=== PATIENT | female | born 1975 | race Caucasian/White ===

== ENCOUNTER 2023-02-24 12:43 | Emergency (ER) | payer OTHER, SELFPAY ==
[2023-02-24 12:53] VITALS: BP 141/77; PULSE 84; RESP 18; TEMP 36.6; O2SAT 98
--- NOTE | 2023-02-24 13:04 | ED.URI ---
HPI - URI/Sore Throat General Chief Complaint: Upper Respiratory Infection Stated Complaint: strep throat test Time Seen by Provider: 02/24/23 13:04 History of Present Illness HPI Narrative: 47-year-old female presented for complaint of sinus congestion and sore throat since yesterday. Patient's dtr who resides with her every other week tested positive for strep today, she was last exposed to dtr 5 days ago. Denies shortness of breath, wheezing, nausea, vomiting, fevers or chills. She has taken ibuprofen for symptoms. Related Data Home Medications Medication Instructions Recorded Confirmed dulaglutide 3 mg/0.5 mL 3 mg subcut WEEKLY 02/24/23 02/24/23 subcutaneous pen injector (Trulicity) Allergies Allergy/AdvReac Type Severity Reaction Status Date / Time cephalexin Allergy Mild rash Verified 02/24/23 13:04 Review of Systems Review of Systems: CONSTITUTIONAL: Denies body aches, fever, chills, or sweats. EYES: Denies visual changes, redness, or discharge. ENT: Reports sore throat, rhinorrhea CARDIOVASCULAR: Denies chest pain, palpitations, or edema. RESPIRATORY: Denies dyspnea. GASTROINTESTINAL: Denies abdominal pain, nausea, vomiting, or diarrhea. SKIN: Denies rash, itching, or wounds. MUSCULOSKELETAL: Denies back pain, joint pain, or myalgia. NEUROLOGIC: Denies headache PMF Past Medical History Medical History (Updated 02/24/23 @ 13:19 by Fabienne Quintero APRN) No pertinent past medical history Social History Social History Smoking status: Never smoker Alcohol intake: never Exam Narrative: GENERAL: well-appearing, no acute distress. EYES: conjunctivae clear ENT: Mucous membranes moist. TMs pearly goel with normal light reflex bilaterally; no tragal tenderness. Oropharynx erythematous without lesions. Tonsils not enlarged and without exudate. No drooling, no hoarseness, no trismus, uvula midline. No tripod positioning, hot potato voice, or soft palate swelling. NECK: Supple. No lymphadenopathy CHEST: Clear to auscultation, breath sounds equal. No respiratory distress, speaks in full sentences. HEART: Regular rate and rhythm. No murmur heard. SKIN: Warm, dry, no rash. NEURO: Alert and oriented x3. Course Course Emergency Course: Patient is aware of diagnosis, understands and agrees to treatment plan. Anticipatory guidance given. Patient agrees to follow-up as directed and is aware of reasons to seek care at the emergency department. Portions of this record may have been created with voice recognition software Level of Care: Express Care Visit Vital Signs Vital signs: Vital Signs Temperature 97.8 F 02/24/23 12:53 Pulse Rate 84 02/24/23 12:53 Respiratory Rate 18 02/24/23 12:53 Blood Pressure 141/77 H 02/24/23 12:53 Pulse Oximetry 98 02/24/23 12:53 Oxygen Delivery Room Air 02/24/23 12:53 Temperature 97.8 F 02/24/23 13:06 Pulse Rate 84 02/24/23 13:06 Respiratory Rate 18 02/24/23 13:06 Blood Pressure 141/77 H 02/24/23 13:06 Pulse Oximetry 98 02/24/23 13:06 Oxygen Delivery Room Air 02/24/23 13:06 MDM - URI/Sore Throat MDM Narrative Medical decision making narrative: strep result reviewed with pt. Advise supportive treatments. Patient is appropriate for outpatient treatment and follow-up. Differential Diagnosis Differential diagnosis: Likely upper respiratory infection, viral infection and pharyngitis Lab Data Labs: Strep Screen Presumptive Negative *(Reference Range: Negative)* Discharge Plan Discharge Clinical Impression: Pharyngitis Qualifiers: Pharyngitis/tonsillitis etiology: unspecified etiology Qualified Code(s): J02.9 - Acute pharyngitis, unspecified Patient Disposition: Home, Self-Care Condition: Stable Instructions: Antibiotic Form, Pharyngitis (ED) Additional Instructions: Rapi
[2023-02-24 13:06] VITALS: BP 141/77; PULSE 84; RESP 18; TEMP 36.6; O2SAT 98
== END 2023-02-24 13:21 | disposition home or self-care (01) ==
PROVIDERS: Emergency Provider Nurse Practitioner Family; PCP Nurse Practitioner Family
DX: J02.9 Acute pharyngitis, unspecified (principal)
CPT/HCPCS: 87081; 87880; 99213; G0463

== ENCOUNTER 2023-12-27 09:07 | Emergency (ER) | payer BC, SELFPAY ==
[2023-12-27 09:13] VITALS: BP 153/76; PULSE 83; RESP 16; TEMP 36.3; O2SAT 99
--- NOTE | 2023-12-27 09:17 | ED.URI ---
HPI - URI/Sore Throat General Chief Complaint: Upper Respiratory Infection Stated Complaint: Sore Throat/Ear Pain Time Seen by Provider: 12/27/23 09:35 Source: patient, RN notes reviewed and old records reviewed Mode of arrival: ambulatory Limitations: no limitations History of Present Illness HPI Narrative: 48 year old female who presents to [facility] with complaints of sore throat, ear pain, cough, body aches, ear pain,and congestion since Monday. Patient reports that it is painful to swallow rates her pain 6-7 but has not taken any OTC medication reports that she hates to take medication. Patient reports that daughter had positive strep last week and she feel like she has strep. Patient requesting Z-pack because easy to swallow. MD elicited complaint: cough, sore throat, nasal congestion and other (body aches and ear pain) Pertinent past history: other (diabetic) Onset (ago): day(s) (day 4) Pain scale (0-10): 7 Able to tolerate fluids by mouth: Yes Exacerbating factors: swallowing Treatments prior to arrival: none Related Data Allergies Allergy/AdvReac Type Severity Reaction Status Date / Time cephalexin Allergy Mild rash Verified 12/27/23 09:35 Review of Systems Review of Systems: CONSTITUTIONAL: Reports malaise, no chills, sweats, or fever. EYES: Denies visual changes, redness, or discharge. ENT: Reports rhinorrhea, congestion, sinus pain,positive for otalgia and positive for sore throat. CARDIOVASCULAR: Denies chest pain, palpitations, or edema. RESPIRATORY: Reports cough.? Denies dyspnea. GASTROINTESTINAL: Denies abdominal pain, nausea, vomiting, diarrhea SKIN: Denies rash or itching. MUSCULOSKELETAL:Reports myalgia. NEUROLOGIC: Denies headache. All systems reviewed & are unremarkable except as noted in HPI and below PMFSH Past Medical History Medical History (Updated 12/29/23 @ 00:14 by Coby Quick NP) Bilateral ankle fractures Diabetes H/O hidradenitis suppurativa No pertinent past medical history TIA (transient ischemic attack) Surgical History Surgical History (Updated 12/29/23 @ 00:14 by Coby Quick NP) Hx of cholecystectomy Family History Family History (Updated 12/29/23 @ 00:18 by Coby Quick NP) Mother Diabetes mellitus Father Acute myocardial infarction Social History Social History (Updated 12/29/23 @ 00:14 by Coby Quick NP) Smoking status: Current every day smoker Tobacco type: e-cigarettes/vaping Alcohol intake: never Substance use type: does not use Living arrangements: with family Gender identity (if verbalized by the patient): Female Comments At time of signature, agree with nursing past medical, surgical, social and family history. There is no relevant family history pertinent to the presenting complaint Exam Narrative: GENERAL: Well-appearing, well-nourished, and in no acute distress. HEAD: Normocephalic EYES: PERRLA, conjunctivae clear ENT: Nares clear, turbinates edematous and erythematous, clear discharge. Mucous membranes moist. TM pearly goel with dull light reflex bilaterally; no tragal tenderness. Oropharynx erythematous without lesions. Tonsils enlarged and without exudate, no drooling, no hoarseness, no trismus, uvula midline. NECK: Supple. lymphadenopathy CHEST: Clear to auscultation, breath sounds equal. No wheezing, rhonchi, rales, or stridor. No respiratory distress, speaks in full sentences.cough.SAO2 99% on room air HEART: Regular rate and rhythm. No murmur heard. SKIN: Warm, dry, no rash. NEURO: Alert and oriented x3. PSYCH: Normal mood and affect Course Course Emergency Course: Patient is aware of diagnosis, understands and agrees to treatment plan.? Anticipatory guidance given.? Patient agrees to follow-up as directed and is aware of reasons to seek care at the emergency department. Portions of this record may have been created with voice recognition software Level of
== END 2023-12-27 10:05 | disposition home or self-care (01) ==
PROVIDERS: Emergency Provider Registered Nurse; PCP Nurse Practitioner Family
DX: J03.90 Acute tonsillitis, unspecified (principal); Z20.822 Contact with and (suspected) exposure to COVID-19; F17.290 Nicotine dependence, other tobacco product, uncomplicated; E11.9 Type 2 diabetes mellitus without complications; Z86.73 Personal history of transient ischemic attack (TIA), and cerebral infarction without residual deficits
CPT/HCPCS: 87081; 87426; 87804; 87880; 99213; G0463

== ENCOUNTER 2024-02-01 08:58 | Emergency (ER) | payer BC, SELFPAY ==
[2024-02-01 09:04] VITALS: BP 135/79; PULSE 85; RESP 20; TEMP 36.8; O2SAT 95
--- NOTE | 2024-02-01 09:21 | ED.GENADULT ---
HPI - General Adult General Chief complaint: Extremity Problem,Nontraumatic Stated complaint: left leg swollen & Painful Source: patient, RN notes reviewed and old records reviewed Mode of arrival: ambulatory Limitations: no limitations History of Present Illness HPI narrative: 48-year-old female presents to [facility] with complaints of left ankle pain and swelling that started couple days ago. Patient denies injury. Patient states has had in the past and symptoms worsen when she is on her feet for long periods of time. Patient has not tried anything for pain or swelling. Related Data Home Medications Medication Instructions Recorded Confirmed blood-glucose sensor (FreeStyle 02/01/24 02/01/24 Collin 3 Sensor device) Allergies Allergy/AdvReac Type Severity Reaction Status Date / Time cephalexin Allergy Mild rash Verified 02/01/24 09:28 Review of Systems Constitutional: Constitutional: Reports no additional constitutional complaints, Denies body ache(s), Denies chills, Denies fatigue, Denies fever(s) and Denies headache(s) Eyes: Eyes: Reports no additional eye complaints and Denies blurry vision ENT: Reports system reviewed and no additional complaints, except as documented, Denies vertigo, Denies dizziness, Denies ear discharge, Denies otalgia, Denies facial pain, Denies headache(s), Denies nasal congestion, Denies nasal discharge, Denies sinus pain, Denies sinus pressure and Denies sore throat Cardiovascular: Cardiovascular: Reports no additional cardiovascular complaints, Denies chest pain, Denies chest pain at rest, Denies rapid heart rate and Denies dyspnea Respiratory: Respiratory: Reports no additional respiratory complaints, Denies chest congestion, Denies cough, Denies pain on inspiration, Denies pain with cough and Denies dyspnea Gastrointestinal: Gastrointestinal: Denies abdominal pain, Denies diarrhea, Denies nausea and Denies vomiting Musculoskeletal: Musculoskeletal: Reports as per HPI and Reports arthralgias Integumentary/Breasts: Skin/Breast: Denies rash Neurologic: Reports system reviewed and no additional complaints, except as documented, Denies vertigo, Denies dizziness and Denies headache(s) Endocrine: Endocrine: Denies fatigue PMFSH Past Medical History Medical History Bilateral ankle fractures Diabetes H/O hidradenitis suppurativa No pertinent past medical history TIA (transient ischemic attack) Surgical History Surgical History Hx of cholecystectomy Family History Family History Mother Diabetes mellitus Father Acute myocardial infarction Social History Social History Smoking status: Current every day smoker Tobacco type: e-cigarettes/vaping Alcohol intake: never Substance use type: does not use Living arrangements: with family Gender identity (if verbalized by the patient): Female Comments At the time of my signature, I reviewed and agree with the nursing past medical, surgical, social, and family history. There is no relevant family history pertinent to the patient complaint. Exam Const: General: cooperative, healthy appearing, no acute distress and well nourished Nutritional Appearance: well nourished Orientation/consciousness: patient oriented x3 Limitations: no limitations HENMT: Head: normal to inspection and normocephalic Ears: external ears normal and mastoids normal Face/Nose/Sinus: normal facial exam Face and sinus: normal facial exam Mouth: Yes Normal oral and palatal mucosa present, Yes oropharynx normal and Yes moist mucous membranes Eyes: General: appearance normal, both eyes and all related structures Sclera: sclerae normal Pupils: Equal, round and reactive pupils present Resp: Effort & Inspection: normal respira
== END 2024-02-01 09:33 | disposition home or self-care (01) ==
PROVIDERS: Emergency Provider Registered Nurse; PCP Nurse Practitioner Family
DX: M77.52 Other enthesopathy of left foot and ankle (principal); E11.9 Type 2 diabetes mellitus without complications; Z86.73 Personal history of transient ischemic attack (TIA), and cerebral infarction without residual deficits; F17.290 Nicotine dependence, other tobacco product, uncomplicated
CPT/HCPCS: 99213; G0463

== ENCOUNTER 2024-05-29 13:51 | Emergency (ER) | payer BC, SELFPAY ==
[2024-05-29 13:54] VITALS: BP 147/77; PULSE 94; RESP 20; TEMP 37; O2SAT 98
--- NOTE | 2024-05-29 14:54 | ED.FEMALEGU ---
HPI - Female Genitourinary General Chief complaint: Urogenital-Female Stated complaint: Kidneys hurting Time Seen by Provider: 05/29/24 14:15 Source: patient, family, RN notes reviewed and old records reviewed Mode of arrival: ambulatory Limitations: no limitations History of Present Illness HPI Narrative: 48 year old female accompanied by family with complaints of bilateral kidney pain stated as pain in the bilateral flank area, Patient had difficulty obtaining urine specimen while in clinic drank water and was finally able to give enough urine for dip procedure bur not able to give any more for culture to be sent. Patient denies any burning or pain with urination reports flank pain as symptom. Patient does wear Dexcom for blood sugar monitor and is on Rybelsus for diabetic management had been on Trulicity prior, glucose level 326 on Dexcom reports that she ate 1.5 hours ago states was around 225 this morning. MD elicited complaint: other (bilateral flank pain) Pertinent past history: diabetes Onset (ago): week(s) (1) Location of symptoms: flank (bilateral flank pain) Severity scale (1-10): 6 Quality of pain: sharp and aching Treatment prior to arrival: other (cranberry pills) Related Data Home Medications Medication Instructions Recorded Confirmed blood-glucose sensor (FreeStyle 02/01/24 05/29/24 Collin 3 Sensor device) semaglutide 3 mg tablet (Rybelsus) 3 mg PO DAILY 05/29/24 05/29/24 Allergies Allergy/AdvReac Type Severity Reaction Status Date / Time cephalexin Allergy Mild rash Verified 05/29/24 14:14 Review of Systems Review of Systems: CONSTITUTIONAL: Denies fever, chills, or sweats. CARDIOVASCULAR: Denies chest pain, palpitations, or edema. RESPIRATORY: Denies cough or dyspnea. GASTROINTESTINAL: Denies abdominal pain, nausea, vomiting, or diarrhea. GENITOURINARY: Reports no dysuria, frequency, urgency. Report bilateral flank pain no hematuria. SKIN: Denies rash or itching. MUSCULOSKELETAL: Denies back pain or myalgia.Reports bilateral flank pain for one week duration NEUROLOGIC: Denies headache All systems reviewed & are unremarkable except as noted in HPI and below PMFSH Past Medical History Medical History (Updated 05/31/24 @ 11:25 by Coby Quick NP) Bilateral ankle fractures Diabetes H/O hidradenitis suppurativa TIA (transient ischemic attack) Surgical History Surgical History Hx of cholecystectomy Family History Family History Mother Diabetes mellitus Father Acute myocardial infarction Social History Social History Smoking status: Current every day smoker Tobacco type: e-cigarettes/vaping Alcohol intake: never Substance use type: does not use Living arrangements: with family Gender identity (if verbalized by the patient): Female Comments At time of signature, agree with nursing past medical, surgical, social and family history. There is no relevant family history pertinent to the presenting complaint Exam Narrative: GENERAL: Well-appearing, well-nourished,obese and in no acute distress. HEAD: Normocephalic, atraumatic. NECK: Supple. no lymphadenopathy CHEST: Clear to auscultation. No respiratory distress.SAO2 98% on room air HEART: Regular rate and rhythm. No murmur heard. Normal peripheral pulses. ABDOMEN: Soft, nontender, nondistended, normal active bowel sounds. Reports bilateral flank pain, denies any burning or pain with urination, EXTREMITIES: Normal range of motion. No edema. SKIN: Warm, dry, no rash. NEURO: No focal deficits. Alert and oriented x3. Course Course Emergency Course: Patient is aware of diagnosis, understands and agrees to treatment plan.? Anticipatory guidance given.? Patient agrees to follow-up as directed and is aware of reasons to seek care at the emergency de
[2024-05-29 15:05] LABS: EDUAAPPEAR Clear; EDUABILI Negative; EDUABLOOD Trace; EDUACOLOR1 Yellow; EDUAGLUCOSE 2+; EDUAKETONE Negative; EDUALEUKO Negative; EDUANITRATE Negative; EDUAPH 5.5; EDUAPROTEIN Negative; EDUASPGRAVITY 1.025; EDUAUROBILI 0.2
== END 2024-05-29 15:15 | disposition home or self-care (01) ==
PROVIDERS: Emergency Provider Registered Nurse; PCP Nurse Practitioner Family
DX: R10.9 Unspecified abdominal pain (principal); E11.9 Type 2 diabetes mellitus without complications; F17.290 Nicotine dependence, other tobacco product, uncomplicated; Z86.73 Personal history of transient ischemic attack (TIA), and cerebral infarction without residual deficits; Z79.84 Long term (current) use of oral hypoglycemic drugs
CPT/HCPCS: 81003; 99213; G0463

== ENCOUNTER 2024-12-04 12:13 | Emergency (ER) | payer OTHER, SELFPAY ==
[2024-12-04 12:28] VITALS: BP 148/83; PULSE 107; RESP 20; TEMP 36.9; O2SAT 99
--- NOTE | 2024-12-04 12:42 | ED.LOWEXIN ---
HPI - Extremity Injury (Lower) General Chief Complaint: Extremity Injury, Lower Stated Complaint: Right Knee Injury Time Seen by Provider: 12/04/24 12:42 Source: patient Mode of arrival: ambulatory Limitations: no limitations History of Present Illness HPI Narrative: 49 yo F presents with c/o R knee pain. Tripped over hose at work and landed on R knee. Ambulatory with limp. Works at [employer]. All systems reviewed and negative except as noted above. Related Data Home Medications ?Medication ?Instructions ?Recorded ?Confirmed ?Last Taken ?Type No Home Medications 12/04/24 Unknown History Allergies Allergy/AdvReac Type Severity Reaction Status Date / Time cephalexin Allergy Mild rash Verified 12/04/24 12:37 Review of Systems Review of Systems: CONSTITUTIONAL: Denies fever, chills, or sweats. EYES: Denies visual changes, redness, or discharge. ENT: Denies rhinorrhea, congestion, sore throat, or otalgia. CARDIOVASCULAR: Denies chest pain, palpitations, or edema. RESPIRATORY: Denies cough or dyspnea. GASTROINTESTINAL: Denies abdominal pain, nausea, vomiting, or diarrhea. GENITOURINARY: Denies dysuria or hematuria. SKIN: Denies rash or itching. MUSCULOSKELETAL: Denies back pain or myalgia. Reports pain and swelling to right knee NEUROLOGIC: Denies headache, numbness, or weakness. PSYCHIATRIC: Denies anxiety or depression. All other systems reviewed are negative, except as documented in HPI. [facility] Past Medical History Medical History (Updated 12/04/24 @ 13:03 by Sita Young NP) TIA (transient ischemic attack) Bilateral ankle fractures H/O hidradenitis suppurativa Diabetes Surgical History Surgical History Hx of cholecystectomy Family History Family History Mother Diabetes mellitus Father Acute myocardial infarction Social History Social History Smoking status: Current every day smoker Tobacco type: e-cigarettes/vaping Alcohol intake: never Substance use type: does not use Living arrangements: with family Gender identity (if verbalized by the patient): Female Comments At time of signature, agree with nursing past medical, surgical, social and family history. There is no relevant family history pertinent to the presenting complaint. Exam Narrative: GENERAL: This is a well-nourished, well-developed patient, in no apparent distress. HEAD: normocephalic, atraumatic. EYES: PERRL. Sclera clear/white. Vision is grossly intact. EARS: External ears normal NOSE: External nose normal NECK: Neck supple, non-tender without lymphadenopathy, masses or thyromegaly. CARDIOVASCULAR: Regular rate and rhythm without murmurs, gallops, or rubs. RESPIRATORY: Clear to auscultation. Breath sounds equal bilaterally. No wheezes, rales, or rhonchi. SKIN: warm, Dry, intact with no suspicious lesions or rash, good texture and turgor. NEURO: awake, alert, and oriented to person, place and time. There were no obvious focal neurologic abnormalities. EXTREMITIES: moderate amount of swelling to right knee, anterior aspect. Tender on palpation to anterior and medial aspect. No deformity noted. Bruising noted to lateral aspect. Pain with flexion. Course Course Level of Care: Express Care Visit Vital Signs Vital signs: Vital Signs Temperature 36.9 C 12/04/24 12:28 Pulse Rate 107 H 12/04/24 12:28 Respiratory Rate 12/04/24 12:28 Blood Pressure 148/83 H 12/04/24 12:28 Pulse Oximetry 99 12/04/24 12:28 Oxygen Delivery Room Air 12/04/24 12:28 Temperature 36.9 C 12/04/24 12:28 Pulse Rate 107 H 12/04/24 12:28 Respiratory Rate 12/04/24 12:28 Blood Pressure 148/83 H 12/04/24 12:28 Pulse Oximetry 99 12/04/24 12:28 Oxygen Delivery Room Air 12/04/24 12:28 Reviewed MDM - Extremity Injury (Lower) MDM Narrative Medical decision making narrative: pt has workman comp paperowork that needs to be filled out. Explained to pt that we can see her for her injury and complete x-ray but we do not fill out workman comp paperwork. 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 R knee x-ray cancelled. Patient is aware of diagnosis, understands and agrees to treatment plan. Anticipatory guidance given. Patient agrees to follow-up as directed and is aware of reasons to seek care at the emergency department. Portions of this record may have been created with voice recognition software Discharge Plan Discharge Clinical Impression: Contusion of knee, right Patient Disposition: Elopement After Seen by Prov Condition: Stable Patient Language: Ghanaian Prescriptions: No Action No Home Medications Follow-up/Referrals: Kandace,GERI Mcmullen [Primary Care Provider] - Time of Disposition: 13:03
--- NOTE | 2024-12-04 13:03 | PC.NURSE ---
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 Aldo DAVE TALKED WITH PT AND PT LEAVING WITH OUT XRAY COMPLETED.
== END 2024-12-04 13:02 | disposition left against medical advice (07) ==
PROVIDERS: Emergency Provider Nurse Practitioner Family; PCP Nurse Practitioner Family
DX: S80.01XA Contusion of right knee, initial encounter (principal); W18.09XA Striking against other object with subsequent fall, initial encounter; Y99.0 Civilian activity done for income or pay; E11.9 Type 2 diabetes mellitus without complications; Z86.73 Personal history of transient ischemic attack (TIA), and cerebral infarction without residual deficits; F17.290 Nicotine dependence, other tobacco product, uncomplicated
CPT/HCPCS: 99213; G0463